=== PATIENT | male | born 1995 | race Caucasian/White ===

== ENCOUNTER 2017-04-14 05:33 | Day surgery (SDC) | payer OTHER, SELFPAY ==
[2017-04-14 06:08] VITALS: BP 171/69; PULSE 66; RESP 16; TEMP 37.1; O2SAT 100; BMI 39.4
[2017-04-14] MEDS: Bupivacaine 0.25% 30 ML Vial (06:54)
--- NOTE | 2017-04-14 06:55 | PCM.DC.ORTHO ---
Discharge Activity: Return to Normal Activity, May not drive while taking narcotic pain medications., May Shower, Use Crutches May resume sexual activity in: No Restrictions Ice area for (Minutes): 20 - Use Polar Care as needed Weight Bearing Status: Weight bearing as tolerated Keep extremity elevated above heart level: Right Leg Additional Activity Instructions:: Activity as tolerated. May flex and extend knee ad beka. Call your doctor if your incision/area has: Continuous Slow Oozing, Sudden Increased Bleeding, Increased Pain/ Swelling, Increased Redness, Foul Smelling Discharge, Swelling at the incision site Call your doctor if you observe: Fever of 101 or Higher, Coldness, Increased Pain, Numbness or Tingling, Change in Color, Inability to urinate, Inability to have a bowel movement, Using more than one pad per hour, Shortness of breath, Dizziness, Fainting spells, Swelling in the ankles, Chest pain, Prolonged hiccoughing, Increased palpitations (irregular heartbeat), Calf discomfort, Uncontrolled pain Suture Line Care: Avoid Pulling/Pushing, Avoid Pinching/Bending Change Dressing in (Days):: 2 Remove Dressing in (days):: 2 Cleanse incision/area with: Soap & Water Additional Dressing/Incision Instructions:: Replace dressing after showering. Wash hands prior to touching wound. Allergies/Adverse Reactions: Allergies No Known Allergies Allergy (Verified 04/10/17 09:57) Medications to take at Discharge Albuterol Inhaler [Ventolin Hfa (SP)] 2 puff INHALATION Q6H PRN PRN 04/10/17 Aspirin/Acetaminophen/Caffeine [Excedrin Migraine Caplet] 1 each PO PRN PRN 04/10/17 Meloxicam [Mobic] 7.5 mg PO DAILY 04/10/17 Docusate Sodium [Colace] 100 mg PO BID PRN PRN #10 cap 04/14/17 Hydrocodone Bitart/Apap 5-325 [Sealevel 5/325] 1 - 2 tablet PO Q6H PRN PRN #60 tablet 04/14/17 ProMETHAzine [Phenergan] 25 mg PO Q4H PRN PRN #10 tab 04/14/17 The following prescriptions were given: ProMETHAzine [Phenergan] 25 mg PO Q4H PRN PRN #10 tab PRN Reason: Nausea Hydrocodone Bitart/Apap 5-325 [Sealevel 5/325] 1 - 2 tablet PO Q6H PRN PRN #60 tablet PRN Reason: Pain Docusate Sodium [Colace] 100 mg PO BID PRN PRN #10 cap PRN Reason: Constipation Primary Care Physician: Aleksey Sarkar [Primary Care Provider] - Please Follow Up With: Caleb Whittaker DO When: call [facility] for appt for 2 weeks Proposed Discharge Date: 04/14/17
[2017-04-14] MEDS: Cefazolin 2 GM in 0.9% Normal Saline 100 ML IV (07:00)
[2017-04-14 08:13] VITALS: BP 141/64; BP 171/69; PULSE 75; RESP 16; TEMP 36.2; O2SAT 100
[2017-04-14 08:30] VITALS: BP 132/76; BP 171/69; PULSE 71; RESP 16; O2SAT 98
[2017-04-14] MEDS: Ketorolac 30 MG/ML Syringe IV (08:31)
[2017-04-14 08:45] VITALS: BP 142/64; BP 171/69; PULSE 80; RESP 16; O2SAT 98
--- NOTE | 2017-04-14 08:47 | OP.PN_ITS ---
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 Post-Operative Diagnosis: Same as above Surgery/Procedure Performed:: Diagnostic right knee arthroscopy with varus cell cartilage biopsy and partial synovectomy with associated chondroplasty Description of Surgical Findings:: See dictation Estimated Blood Loss: 5 Specimen's removed: Carticel biopsy Type of Anesthesia:: General ASA Class: ASA1 Normal Healthy Patient - Admit VTE Documentation VTE Present on Admission: No VTE Mechan Device Prophylaxis: SCD's, Knee High FE Hose VTE Pharm Prophylaxis ordered?: Yes
[2017-04-14 09:00] VITALS: BP 141/65; BP 171/69; PULSE 89; RESP 16; TEMP 36.6; O2SAT 98
[2017-04-14 10:13] VITALS: BP 171/69
--- NOTE | 2017-04-14 18:07 | PCM.OPRPT ---
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 Post-Operative Diagnosis: Same as above Surgery/Procedure Performed:: Diagnostic right knee arthroscopy with varus cell cartilage biopsy and partial synovectomy with associated chondroplasty Description of Surgical Findings:: 21-year-old male with recalcitrant right knee pain that failed nonoperative management to include NSAIDs activity modifications physical therapy and injections. Patient had an MRI that showed him to have an osteochondral defect of the patella with subchondral edema and associated mild changes across the superolateral aspect of the trochlea. His medial lateral compartments are otherwise well-preserved. Due the fact there was a large cartilage defect to the patella my recommendation was for a diagnostic knee scope and evaluation for probable cartilage confucianist procedure using autologous chondrocyte implantation technique and/or evaluation for possible osteochondral allograft transplantation. Patient was met in the holding area where the right lower extremity was marked and identified by the with surgeon. Patient was taken the operating room in satisfactory condition with somewhat to place to identify patient up procedure limb. Patient received 2 g of Ancef. He had a well-placed tourniquet the right proximal thigh he was then prepped and draped in the usual fashion. Right lower extremity was elevated Esmarch used for exsanguination and tourniquet was increased to 250 mmHg for roughly 30 minutes. Anterolateral portal was established and we entered the suprapatellar pouch. There was a small return of an effusion. Superior lateral outflow portal was created. Diagnostic scope should the patient have small chondral fragments floating within the soft tissue recesses of the knee. It can be seen globally that the patella showed a large osteochondral defect essentially of the central ridge to the lateral patellar facet. This incorporated roughly 3/4 of the overall dimension of the patella from superior to inferior and every bit of two thirds from a medial lateral direction. Patient's patella had a natural tendency to track laterally and he could see that the superior lateral aspect of the trochlea showed high-grade chondromalacia of roughly grade 3 but then normalized as we moved further down into the trochlear groove and deeper knee flexion. Moving lateral gutter had a small chondral fragment and there is a folded up into the pouch. Otherwise the popliteal hiatus was normal. We then moved in the medial gutter established anteromedial portal and performed our diagnostic scope. Initially a scope was introduced into the pouch to remove any chondral fragments were identified. He had a small chondral fragment within the medial compartment that was made that was removed with a grasper. The remaining portions of the medial compartment was otherwise pristine. He had no chondromalacia to the medial femoral condyle or medial tibial plateau. His menisci were pristine. ACL and PCL were well within normal limits. Standard anterior synovectomy was then performed for better visualization of the patella due to significant hypertrophic anterior fat pad. This was done mechanically and also using vapor cautery. Evaluation lateral compartment showed no meniscal pathology grade 1 softening to the femoral condyle through from 0-90? of knee flexion. The patient had a fissure formation within the central aspect of the tibial plateau consistent with grade III chondromalacia. However was well stabilized on the peripheral edges. No chondroplasty was performed. At that point time we turned our attention to the patella. A chondroplasty of the patellas rim edges was performed to control the loose chondral fragments. We then took sizing measurements. From superior to inferior the overall dimensions were roughly 17-20 mm. And from medial to lateral dimensions was roughly 20 mm. At that point time we turned our attention to performing a cartilage biopsy within the central notch using standard technique. I used a pituitary rongeur to take out multiple cartilage fragments again within the notch and the limited weightbearing area of the knee. These were done in full-thickness catches all the way down the subchondral bone to allow for the best biopsy and harvest formation that we can supply to the cartilage shell expanding facility. Upon completion of adequate cartilage harvest, the cartilage fragments were placed into the proprietary cartilage growth medium under sterile conditions. We then removed our instruments and any excess fluid. The portal sites are closed with 3-0 nylon using simple suture technique. The portal sites were injected with 30 cc of Marcaine solution without epinephrine using standard technique. Patient was then dressed with Xeroform 4 x 4's Kerlix roll ABD Kobi wrap and the tourniquet was let down after again roughly 30 minutes. I simply took the cartilage biopsy and hand package it myself and make contact with the [facility] facility for cartilage pickup and expansion of the cells for the secondary procedure. At this point time based on the large full-thickness cartilage defect in the patient's younger age ACI/MIQUEL with associated tibial tubercle osteotomy would be highly recommended for future intervention. Other cartilage confucianist procedure would include an OCT allograft transplantation. We had no drains or complications. Patient will follow me in 2 weeks and start the knee arthroscopy protocol. Patient will use 81 mg of aspirin for DVT prophylaxis with early aggressive range of motion recommended. I was scrubbed and available time during our procedure. There is any issues please contact me. cloth beamer: Mario Stallings Type of Anesthesia:: General Specimen's removed: Carticel biopsy Estimated Blood Loss (mL): 5 Fluids Replaced: 1000 - Complications none - Admit VTE Documentation VTE Present on Admission: No VTE Mechan Device Prophylaxis: SCD's, Knee High FE Hose VTE Pharm Prophylaxis ordered?: Yes
--- NOTE | 2017-04-14 18:15 | OP.PCM_ITS ---
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 Post-Operative Diagnosis: Same as above Surgery/Procedure Performed:: Diagnostic right knee arthroscopy with varus cell cartilage biopsy and partial synovectomy with associated chondroplasty Description of Surgical Findings:: 21-year-old male with recalcitrant right knee pain that failed nonoperative management to include NSAIDs activity modifications physical therapy and injections. Patient had an MRI that showed him to have an osteochondral defect of the patella with subchondral edema and associated mild changes across the superolateral aspect of the trochlea. His medial lateral compartments are otherwise well-preserved. Due the fact there was a large cartilage defect to the patella my recommendation was for a diagnostic knee scope and evaluation for probable cartilage scientology procedure using autologous chondrocyte implantation technique and/or evaluation for possible osteochondral allograft transplantation. Patient was met in the holding area where the right lower extremity was marked and identified by the with surgeon. Patient was taken the operating room in satisfactory condition with somewhat to place to identify patient up procedure limb. Patient received 2 g of Ancef. He had a well- placed tourniquet the right proximal thigh he was then prepped and draped in the usual fashion. Right lower extremity was elevated Esmarch used for exsanguination and tourniquet was increased to 250 mmHg for roughly 30 minutes. Anterolateral portal was established and we entered the suprapatellar pouch. There was a small return of an effusion. Superior lateral outflow portal was created. Diagnostic scope should the patient have small chondral fragments floating within the soft tissue recesses of the knee. It can be seen globally that the patella showed a large osteochondral defect essentially of the central ridge to the lateral patellar facet. This incorporated roughly 3/4 of the overall dimension of the patella from superior to inferior and every bit of two thirds from a medial lateral direction. Patient's patella had a natural tendency to track laterally and he could see that the superior lateral aspect of the trochlea showed high-grade chondromalacia of roughly grade 3 but then normalized as we moved further down into the trochlear groove and deeper knee flexion. Moving lateral gutter had a small chondral fragment and there is a folded up into the pouch. Otherwise the popliteal hiatus was normal. We then moved in the medial gutter established anteromedial portal and performed our diagnostic scope. Initially a scope was introduced into the pouch to remove any chondral fragments were identified. He had a small chondral fragment within the medial compartment that was made that was removed with a grasper. The remaining portions of the medial compartment was otherwise pristine. He had no chondromalacia to the medial femoral condyle or medial tibial plateau. His menisci were pristine. ACL and PCL were well within normal limits. Standard anterior synovectomy was then performed for better visualization of the patella due to significant hypertrophic anterior fat pad. This was done mechanically and also using vapor cautery. Evaluation lateral compartment showed no meniscal pathology grade 1 softening to the femoral condyle through from 0-90? of knee flexion. The patient had a fissure formation within the central aspect of the tibial plateau consistent with grade III chondromalacia. However was well stabilized on the peripheral edges. No chondroplasty was performed. At that point time we turned our attention to the patella. A chondroplasty of the patellas rim edges was performed to control the loose chondral fragments. We then took sizing measurements. From superior to inferior the overall dimensions were roughly 17-20 mm. And from medial to lateral dimensions was roughly 20 mm. At that point time we turned our attention to performing a cartilage biopsy within the central notch using standard technique. I used a pituitary rongeur to take out multiple cartilage fragments again within the notch and the limited weightbearing area of the knee. These were done in full-thickness catches all the way down the subchondral bone to allow for the best biopsy and harvest formation that we can supply to the cartilage shell expanding facility. Upon completion of adequate cartilage harvest, the cartilage fragments were placed into the proprietary cartilage growth medium under sterile conditions. We then removed our instruments and any excess fluid. The portal sites are closed with 3-0 nylon using simple suture technique. The portal sites were injected with 30 cc of Marcaine solution without epinephrine using standard technique. Patient was then dressed with Xeroform 4 x 4's Kerlix roll ABD Kobi wrap and the tourniquet was let down after again roughly 30 minutes. I simply took the cartilage biopsy and hand package it myself and make contact with the [facility] facility for cartilage pickup and expansion of the cells for the secondary procedure. At this point time based on the large full-thickness cartilage defect in the patient's younger age ACI/MIQUEL with associated tibial tubercle osteotomy would be highly recommended for future intervention. Other cartilage scientology procedure would include an OCT allograft transplantation. We had no drains or complications. Patient will follow me in 2 weeks and start the knee arthroscopy protocol. Patient will use 81 mg of aspirin for DVT prophylaxis with early aggressive range of motion recommended. I was scrubbed and available time during our procedure. There is any issues please contact me. box annealer: Mario Stallings Type of Anesthesia:: General Specimen's removed: Carticel biopsy Estimated Blood Loss (mL): 5 Fluids Replaced: 1000 - Complications none - Admit VTE Documentation VTE Present on Admission: No VTE Mechan Device Prophylaxis: SCD's, Knee High FE Hose VTE Pharm Prophylaxis ordered?: Yes
== END 2017-04-14 10:15 | disposition home or self-care (01) ==
LOC: SDC 05:33 → AC 05:34
PROVIDERS: Family Provider Family Medicine; PCP Family Medicine; Visit Provider Orthopaedic Surgery
PROC: (CPT 29870; principal; 2017-04-14 06:55)
DX: M22.41 Chondromalacia patellae, right knee (principal); M95.8 Other specified acquired deformities of musculoskeletal system; M23.91 Unspecified internal derangement of right knee; J45.909 Unspecified asthma, uncomplicated; G43.909 Migraine, unspecified, not intractable, without status migrainosus; Z79.899 Other long term (current) drug therapy
CPT/HCPCS: 29877; J7120; J2405

== ENCOUNTER 2017-06-01 15:30 | Outpatient (RCR) | payer OTHER, SELFPAY ==
--- NOTE | 2017-04-30 15:59 | HP.PTEVAL ---
Patient's Visit Information STARR GRAHAM is a 21 year old M referred to Physical Therapy by Caleb Whittaker DO DR.MTMOLLY with a diagnosis of R knee scope. Date of Evaluation: 04/30/17 Physical Therapist: Nicholas Montes PT, - Visit Plan Frequency: 2-3x /Week Duration: 4-6 Weeks Plan: R knee stretching and strengthening, balance and proprio, core stab ex's, bike, and HEP - Subjective Subjective: DOS: 04/14/17. Pt had R knee arthroscopy secondary to continually suffering from pain and swelling while playing basketball. Pt report there was a lot of grinding in his knee as well. Pt reports he bagan to notice a lot of difficulty with stair negotiation and noted he became really weak. Pt reports he doesnt have the grinding in his knee anymore, but he is really stiff at the moment. No PMHx of R knee surgeries. No sleep diff secondary to pain. Pt reports his R knee is really weak right now and wants to hyperextend at times while trying to walk. Pt still having pain descending stairs since DOS. Pt is currently working at [employer]. Pt is able to tolerate working for a few hours on his feet, but has to sit down often secondary to pain. Pt does note numbness on occasion in his R distal femur. 0/10 pain at rest, 5/10 at worst (walking) - Pain R knee Pain Intensity (Out of 10): 0 Pain Intensity Range: 5 - Objective Neuro: B LE sensation is WNL to light touch. B achilles reflex= 2/3. Girth at joint line: L knee 43 cm, R knee 47 cm. ROM: L knee 0-115; R knee 0-5-84. MMT: L knee 5/5 throughout. R knee 3+/5. Gait: Pt lacks HS during stance phase at this time landing mostly on the forefoot - Goals Goal 1:: Decrease R knee pain x 50% to aid with increasing standing tolerance Goal Time Frame: 4-6 Weeks Goal 2:: Increase R knee strength x 1 grade to aid with stair negotiation Goal Time Frame: 4-6 Weeks Goal 3:: Increase R knee ROM x 15-20 degrees to aid with restoring a normalized gait pattern Goal Time Frame: 4-6 Weeks Goal 4:: I with HEP Goal Time Frame: 4-6 Weeks - Rehabilitation Potential Physical Therapy Diagnosis: R knee pain, swelling, and weakness secondary to pt being s/p R knee scope Rehabilitation Potential: Good - Anticipated Interventions Patient/Client Instruction: Educate patient on: Condition, Plan of Care For the Purpose of:: To improve self management Therapeutic Exercise to Include: Strength training, Endurance training, Balance training, Flexibilty training, Gait and locomotor training, Active ROM, Dynamic Lumbar Stabilization For the Purpose of:: To decrease pain, To increase ROM, To improve muscle performance and motor function Cryotherapy (ice pack, ice massage): Yes For the Purpose of:: To decrease pain Thank you for the opportunity to evaluate your patient. For Medicare and Medicare HMO plans, please review the plan of care and approve it. It will need to be FAXED BACK to us at [phone] for Medicare purposes. Please let me know if there are questions or concerns regarding this plan of care. Physician Signature: Date:
--- NOTE | 2017-06-01 15:43 | HP.PTDCSUM ---
HP - PT D/C Summary It has been my pleasure to treat STARR GRAHAM under orders from Caleb Whittaker DO, for the diagnosis of R knee scope for a total of 7 visit(s). Discharge Date: Please see the following information for a summary of their discharge status. - Subjective Subjective: Pt reports no pain this date - Pain R knee Pain Intensity (Out of 10): 0 - Objective Objective/Function: R knee pain 0/10. R knee strength 5/5. R knee ROM 0-125. I with HEP. Rx goals achieved - Goals Goal 1:: Decrease R knee pain x 50% to aid with increasing standing tolerance Goal Progress: Goal Met Goal 2:: Increase R knee strength x 1 grade to aid with stair negotiation Goal Progress: Goal Met Goal 3:: Increase R knee ROM x 15-20 degrees to aid with restoring a normalized gait pattern Goal Progress: Goal Met Goal 4:: I with HEP Goal Progress: Goal Met - Plan Plan: Discharge - D/C Information If there are questions or concerns regarding this patient's physical therapy, please feel free to call me at [phone]. Thank you for the referral of this patient. Sincerely, Nicholas Montes, PT,
== END 2017-06-01 19:00 | disposition home or self-care (01) ==
LOC: PT 15:30
PROVIDERS: Family Provider Family Medicine; PCP Family Medicine; Visit Provider Orthopaedic Surgery
DX: Z98.890 Other specified postprocedural states (principal)
CPT/HCPCS: 97110; 97161; 97530

== ENCOUNTER → 2018-03-15 14:07 | Outpatient (CLI) | payer OTHER, SELFPAY ==
--- NOTE | 2018-03-15 14:15 | RAD_ITS ---
STUDY: X-RAY - RIGHT KNEE REASON FOR EXAM: Male, 22 years old. Pain TECHNIQUE: 4 view(s) of the knee. COMPARISON: 08/11/2016 FINDINGS: There is a stable well-corticated osseous density adjacent to the tibial tubercle which likely represents old, healed [place]-Schlatter's disease. There is no evidence of acute fracture or dislocation. There are no significant degenerative changes. There are no radiodense foreign bodies. RAD/Knee 4 or More Views IMPRESSION: Stable well-corticated osseous density adjacent to the tibial tubercle which likely represents old, healed [place]-Schlatter's disease. No acute fracture or dislocation. Electronically Signed: Aleksey Roque, at 16:15 EST Tel , Service support ,
== END ==
PROVIDERS: Family Provider Family Medicine; PCP Family Medicine; Referring Provider Orthopaedic Surgery; Visit Provider Orthopaedic Surgery
DX: M25.561 Pain in right knee (principal)
CPT/HCPCS: 73564